=== PATIENT | female | born 1995 | race Caucasian/White ===

== ENCOUNTER 2021-10-31 22:22 | Emergency (ER) | payer OTHER ==
[~2021-10-31] VITALS: Ht 167.6 cm; Wt 86.4 kg
[~2021-10-31 22:22] MED LIST: FLUO-191 PO; RISP2TAB45 PO
[2021-10-31 22:36] VITALS: BP 133/84
== END 2021-11-01 | disposition home or self-care (01) ==
LOC: EMS 22:23
DX: F32.9 Major depressive disorder, single episode, unspecified (principal); F17.210 Nicotine dependence, cigarettes, uncomplicated; F12.90 Cannabis use, unspecified, uncomplicated
CPT/HCPCS: 99284; Z7502

== ENCOUNTER 2022-10-25 02:01 | Inpatient (IN) | payer MEDICAID, OTHER ==
[~2022-10-25] VITALS: Ht 170.2 cm; Wt 78.0 kg
[~2022-10-25 02:01] MED LIST changes: +FLUO-177 PO; -FLUO-191 PO
[2022-10-25] MEDS ORDERED: GABA-1216 PO (02:24)
[2022-10-25] MEDS ORDERED: LURA20TA PO (02:24)
[2022-10-25] MEDS ORDERED: ESCI20TA87 PO (02:24)
[2022-10-25 03:18] LABS: COVID AG,FIA SOURCE NASOPHARYNGEAL
[2022-10-25 03:29] LABS: BASOPHILS % (AUTO) 0.7 % (0.0-2.0); EOSINOPHILS % (AUTO) 2.7 % (1.0-6.0); HEMATOCRIT 42.4 % (36-46); HEMOGLOBIN 14.2 g/dL (12.0-16.0); LYMPHOCYTES # (AUTO) 3.1 K/uL (1.0-4.8); LYMPHOCYTES % (AUTO) 34.6 % (22.0-44.0); MEAN CORPUSCULAR HEMOGLOBIN 30.5 pg (26.0-34.0); MEAN CORPUSCULAR HGB CONC 33.6 G/dL (31.0-37.0); MEAN CORPUSCULAR VOLUME 91 fL (80-100); MONOCYTES # (AUTO) 0.8 K/uL (0.1-1.0); MONOCYTES % (AUTO) 9.3 % (2.0-9.0); NEUTROPHILS # (AUTO) 4.7 K/uL (1.8-7.7); NEUTROPHILS % (AUTO) 52.7 % (40.0-70.0); PLATELET COUNT (AUTO) 329 K/uL (150-450); RED BLOOD CELL COUNT(AUTO) 4.66 MIL/uL (4.00-5.20); RED CELL DISTRIBUTION WIDTH 12.9 % (11.5-14.5)
[2022-10-25 03:31] LABS: ANION GAP 12 mmol/L (8-16); CALCIUM, TOTAL 9.3 mg/dL (8.8-10.5); CARBON DIOXIDE 27 mmol/L (22-29); CHLORIDE 103 mmol/L (98-107); GLUCOSE,RANDOM 131 mg/dL (70-110); POTASSIUM 3.6 mmol/L (3.5-5.1); SODIUM SERUM 142 mmol/L (136-145); UREA NITROGEN, BLOOD 7 mg/dL (7-18)
[2022-10-25 03:37] LABS: GLOMERULAR FILTR. RATE CALC > 60 mL/min (>60)
[2022-10-25 03:38] LABS: ALANINE AMINOTRANSFERASE 59 U/L (12-78); ALKALINE PHOSPHATASE 86 U/L (46-116); ASPARTATE AMINOTRANSFERASE 32 U/L (15-37); BILIRUBIN,TOTAL 0.7 mg/dL (0.1-1.0)
[2022-10-25 03:39] LABS: ALBUMIN 4.1 g/dL (3.4-5.0); TOTAL PROTEIN, SERUM 7.7 g/dL (6.4-8.2)
[2022-10-25] MEDS ORDERED: ZOLPIDEM TARTRATE 10 MG TABLET PO PRN (11:00)
[2022-10-25] MEDS ORDERED: QUEtiapine FUMARATE 100 MG TABLET PO PRN (11:00)
[2022-10-25] MEDS ORDERED: LORazepam 2 MG TABLET PO PRN (11:00)
[2022-10-25 22:14] VITALS: BP 128/92
[2022-10-26] MEDS ORDERED: INFLUENZA VIRUS VACCINE QVS 2022-23 (6MO+)/PF 60 MCG/0.5 ML SYRINGE IM. ONE (04:45)
[2022-10-26] MEDS ORDERED: ONDANSETRON HCL 4 MG TABLET PO PRN (07:00)
[2022-10-26] MEDS ORDERED: NICOTINE 14 MG/24 HOUR PATCH TD PRN (07:00)
[2022-10-26] MEDS ORDERED: ACETAMINOPHEN 325 MG TABLET PO PRN (07:00)
[2022-10-26] MEDS ORDERED: MAG HYDROX/AL HYDROX/SIMETH ES 30 ML SUSPENSION UDCUP PO PRN (07:00)
[2022-10-26] MEDS ORDERED: DOCUSATE SODIUM 100 MG CAPSULE PO PRN (07:00)
[2022-10-26] MEDS ORDERED: MAGNESIUM HYDROXIDE SUSPENSION 30 ML UDCUP PO PRN (07:00)
[2022-10-26] MEDS ORDERED: LOPERAMIDE HCL 2 MG CAPSULE PO PRN (07:00)
[2022-10-26] MEDS ORDERED: PETROLATUM,WHITE 28 GM JELLY TP PRN (07:00)
[2022-10-26] MEDS ORDERED: ALBUTEROL SULFATE HFA 90 MCG/PUFF 8 GM INHALER IH PRN (07:00)
[2022-10-26] MEDS ORDERED: GuaiFENesin/D-METHORPHAN [SUGAR-FREE] 200-20MG/10 ML SYRUP UDCUP PO PRN (07:00)
[2022-10-26] MEDS ORDERED: CloNIDine HCL 0.1 MG TABLET PO PRN (07:00)
[2022-10-26] MEDS ORDERED: IBUPROFEN 400 MG TABLET PO PRN (07:00)
[2022-10-26 10:07] VITALS: BP 127/56
[2022-10-26] MEDS: ESCITALOPRAM OXALATE 20 MG TABLET PO SCH (13:46)
[2022-10-26 16:38] VITALS: BP 121/61
[2022-10-26] MEDS: LURASIDONE HCL 20 MG TABLET PO SCH (17:44)
[2022-10-27 08:48] VITALS: BP 137/85
[2022-10-27] MEDS: ESCITALOPRAM OXALATE 20 MG TABLET PO SCH (08:53)
[2022-10-27] MEDS: LURASIDONE HCL 20 MG TABLET PO SCH (16:15)
[2022-10-27 16:19] VITALS: BP 144/65
[2022-10-28] MEDS: ESCITALOPRAM OXALATE 20 MG TABLET PO SCH (09:03)
[2022-10-28 09:14] VITALS: BP 111/73
[2022-10-28] MEDS ORDERED: ESCI20TA87 PO (10:50)
[2022-10-28] MEDS ORDERED: LURA20TA PO (10:50)
[2022-10-30 05:07] LABS: HIV 1-2 SCREEN 4TH GEN W/RFLX Non Reactive (Non Reactive)
== END 2022-10-28 14:40 | disposition home or self-care (01) | DRG 753 ==
LOC: EMS 02:02 → 3EI 15:56
PROVIDERS: ADMIT Psychiatry & Neurology Psychiatry; ATTEND Psychiatry & Neurology Psychiatry
DX: F31.63 Bipolar disorder, current episode mixed, severe, without psychotic features (principal); R45.851 Suicidal ideations; F10.129 Alcohol abuse with intoxication, unspecified; F17.200 Nicotine dependence, unspecified, uncomplicated; G47.00 Insomnia, unspecified; F60.3 Borderline personality disorder; Y90.6 Blood alcohol level of 120-199 mg/100 ml; Z20.822 Contact with and (suspected) exposure to COVID-19; F41.9 Anxiety disorder, unspecified; R03.0 Elevated blood-pressure reading, without diagnosis of hypertension; Z71.6 Tobacco abuse counseling; Z79.899 Other long term (current) drug therapy; Z71.51 Drug abuse counseling and surveillance of drug abuser
CPT/HCPCS: 80053; 84703; 85025; 86592; 87389; 99285; G0480; Q9967

== ENCOUNTER 2022-12-18 11:41 | Inpatient (IN) | payer MEDICAID, OTHER ==
[~2022-12-18] VITALS: Ht 170.2 cm; Wt 76.3 kg
[~2022-12-18 11:41] MED LIST changes: +ESCI20TA87 PO; -FLUO-177 PO; +LURA20TA PO; -RISP2TAB45 PO
[2022-12-18] MEDS ORDERED: CHARCOAL/SORBITOL 50 GM/240 ML SUSPENSION PO ONE (12:00)
[2022-12-18] MEDS ORDERED: SODIUM CHLORIDE 0.9% 1,000 ML IV ONE (12:30)
[2022-12-18] MEDS ORDERED: ONDANSETRON HCL 4 MG/2 ML VIAL IVP ONE (12:30)
[2022-12-18 12:34] LABS: COVID AG,FIA SOURCE NASOPHARYNGEAL
[2022-12-18 12:37] LABS: BASOPHILS % (AUTO) 0.9 % (0.0-2.0); EOSINOPHILS % (AUTO) 2.6 % (1.0-6.0); HEMATOCRIT 44.5 % (36-46); HEMOGLOBIN 14.9 g/dL (12.0-16.0); LYMPHOCYTES # (AUTO) 2.4 K/uL (1.0-4.8); LYMPHOCYTES % (AUTO) 37.9 % (22.0-44.0); MEAN CORPUSCULAR HEMOGLOBIN 30.5 pg (26.0-34.0); MEAN CORPUSCULAR HGB CONC 33.6 G/dL (31.0-37.0); MEAN CORPUSCULAR VOLUME 91 fL (80-100); MONOCYTES # (AUTO) 0.5 K/uL (0.1-1.0); MONOCYTES % (AUTO) 8.3 % (2.0-9.0); NEUTROPHILS # (AUTO) 3.2 K/uL (1.8-7.7); NEUTROPHILS % (AUTO) 50.3 % (40.0-70.0); PLATELET COUNT (AUTO) 326 K/uL (150-450); RED BLOOD CELL COUNT(AUTO) 4.89 MIL/uL (4.00-5.20); RED CELL DISTRIBUTION WIDTH 12.9 % (11.5-14.5)
[2022-12-18 12:52] LABS: ANION GAP 9 mmol/L (8-16); CALCIUM, TOTAL 8.8 mg/dL (8.8-10.5); CARBON DIOXIDE 29 mmol/L (22-29); CHLORIDE 102 mmol/L (98-107); CREATININE 0.87 mg/dL (0.60-1.30); GLOMERULAR FILTR. RATE CALC > 60 mL/min (>60); GLUCOSE,RANDOM 102 mg/dL (70-110); POTASSIUM 4.1 mmol/L (3.5-5.1); SODIUM SERUM 140 mmol/L (136-145); UREA NITROGEN, BLOOD 13 mg/dL (7-18)
[2022-12-18 12:57] LABS: ALANINE AMINOTRANSFERASE 65 U/L (12-78); ALBUMIN 4.2 g/dL (3.4-5.0); ALKALINE PHOSPHATASE 85 U/L (46-116); ASPARTATE AMINOTRANSFERASE 43 U/L (15-37); BILIRUBIN,TOTAL 0.4 mg/dL (0.1-1.0); TOTAL PROTEIN, SERUM 7.6 g/dL (6.4-8.2)
[2022-12-18 13:24] LABS: SALICYLATE 0.9 mg/dL (2.8-20.0)
[2022-12-18 13:30] LABS: ACETAMINOPHEN < 2 mcg/mL (10-30)
[2022-12-18] MEDS ORDERED: HALOPERIDOL 5 MG TABLET PO PRN (16:30)
[2022-12-18] MEDS ORDERED: LORazepam 2 MG TABLET PO PRN (16:30)
[2022-12-19 00:08] VITALS: BP 136/88
[2022-12-19 08:29] VITALS: BP 115/72
[2022-12-19] MEDS ORDERED: CloNIDine HCL 0.1 MG TABLET PO PRN (09:00)
[2022-12-19] MEDS ORDERED: PETROLATUM,WHITE 28 GM JELLY TP PRN (09:00)
[2022-12-19] MEDS ORDERED: BACITRACIN 28 GM OINTMENT TP PRN (09:00)
[2022-12-19] MEDS ORDERED: ONDANSETRON HCL 4 MG TABLET PO PRN (09:00)
[2022-12-19] MEDS ORDERED: ACETAMINOPHEN 325 MG TABLET PO PRN (09:00)
[2022-12-19] MEDS ORDERED: DOCUSATE SODIUM 100 MG CAPSULE PO PRN (09:00)
[2022-12-19] MEDS ORDERED: BENZOCAINE/MENTHOL LOZENGE PO PRN (09:00)
[2022-12-19] MEDS ORDERED: OMEPRAZOLE 20 MG CAPSULE PO PRN (09:00)
[2022-12-19] MEDS ORDERED: MAGNESIUM HYDROXIDE SUSPENSION 30 ML UDCUP PO PRN (09:00)
[2022-12-19] MEDS ORDERED: ALBUTEROL SULFATE HFA 90 MCG/PUFF 8 GM INHALER IH PRN (09:00)
[2022-12-19] MEDS ORDERED: MAG HYDROX/AL HYDROX/SIMETH ES 30 ML SUSPENSION UDCUP PO PRN (09:00)
[2022-12-19] MEDS ORDERED: LOPERAMIDE HCL 2 MG CAPSULE PO PRN (09:00)
[2022-12-19] MEDS ORDERED: IBUPROFEN 600 MG TABLET PO PRN (09:00)
[2022-12-19 12:00] VITALS: BP 120/80
[2022-12-19 16:11] VITALS: BP 115/72
[2022-12-20 08:30] VITALS: BP 113/66
[2022-12-20] MEDS: ESCITALOPRAM OXALATE 20 MG TABLET PO SCH (10:43)
[2022-12-20] MEDS: LITHIUM CARBONATE 300 MG CAPSULE PO SCH ×2 (10:43→16:18)
[2022-12-20 20:29] VITALS: BP 117/72
[2022-12-20] MEDS: ZOLPIDEM TARTRATE 10 MG TABLET PO PRN (20:50)
[2022-12-21 08:30] VITALS: BP 102/66
[2022-12-21] MEDS: LITHIUM CARBONATE 300 MG CAPSULE PO SCH ×2 (08:44→16:48)
[2022-12-21] MEDS: ESCITALOPRAM OXALATE 20 MG TABLET PO SCH (08:44)
[2022-12-21] MEDS ORDERED: ESCI20TA87 PO (11:17)
[2022-12-21] MEDS ORDERED: LITH300C3 PO (11:17)
[2022-12-21 17:39] VITALS: BP 99/70
[2022-12-21 20:32] VITALS: BP 103/84
[2022-12-21] MEDS: ZOLPIDEM TARTRATE 10 MG TABLET PO PRN (21:07)
[2022-12-22 08:33] VITALS: BP 120/66
[2022-12-22] MEDS: LITHIUM CARBONATE 300 MG CAPSULE PO SCH (08:34)
[2022-12-22] MEDS: ESCITALOPRAM OXALATE 20 MG TABLET PO SCH (08:34)
== END 2022-12-22 14:12 | disposition home or self-care (01) | DRG 753 ==
LOC: EMS 11:43 → 3EI 21:47
PROVIDERS: ADMIT Psychiatry & Neurology Psychiatry; ATTEND Psychiatry & Neurology Psychiatry
DX: F31.4 Bipolar disorder, current episode depressed, severe, without psychotic features (principal); F22 Delusional disorders; F41.9 Anxiety disorder, unspecified; Z20.822 Contact with and (suspected) exposure to COVID-19; F10.129 Alcohol abuse with intoxication, unspecified; F60.3 Borderline personality disorder; F12.90 Cannabis use, unspecified, uncomplicated; G47.00 Insomnia, unspecified; I10 Essential (primary) hypertension; R00.0 Tachycardia, unspecified; K59.00 Constipation, unspecified; T43.592A Poisoning by other antipsychotics and neuroleptics, intentional self-harm, initial encounter; Y92.89 Other specified places as the place of occurrence of the external cause; Z91.51 Personal history of suicidal behavior; Z79.899 Other long term (current) drug therapy; Z72.0 Tobacco use
CPT/HCPCS: 80053; 84703; 85025; 87081; 93005; 99291; G0480; G0481; J2405

== ENCOUNTER 2024-01-21 17:16 | Emergency (ER) | payer MEDICAID, OTHER ==
[~2024-01-21] VITALS: Ht 170.2 cm; Wt 90.9 kg
[~2024-01-21 17:16] MED LIST changes: +LITH300C3 PO; -LURA20TA PO
[2024-01-21 17:33] VITALS: TEMP 98.3
[2024-01-21] MEDS: IBUPROFEN 600 MG TABLET PO ONE (21:08)
[2024-01-21] MEDS: ACETAMINOPHEN 500 MG TABLET PO ONE (21:09)
[2024-01-21] MEDS ORDERED: ESCI20TA87 PO (23:05)
[2024-01-21] MEDS ORDERED: LITH300C3 PO (23:05)
[2024-01-21] MEDS ORDERED: IBUP-1493 PO (23:07)
[2024-01-21 23:25] VITALS: BP 132/73; PULSE 87; RESP 20
== END 2024-01-21 23:29 | disposition home or self-care (01) ==
LOC: EMS 17:16
DX: S80.02XA Contusion of left knee, initial encounter (principal); F41.9 Anxiety disorder, unspecified; F31.9 Bipolar disorder, unspecified; W10.9XXA Fall (on) (from) unspecified stairs and steps, initial encounter; Y93.89 Activity, other specified; Y92.89 Other specified places as the place of occurrence of the external cause; Y99.8 Other external cause status
CPT/HCPCS: 99283